=== PATIENT | male | born 1980 | race Caucasian/White ===

== ENCOUNTER 2017-04-09 12:57 | Emergency (ER) | payer OTHER | END 2017-04-09 15:15 | disposition home or self-care (01) | LOC: D.ER 12:57 | DX: S69.91XA Unspecified injury of right wrist, hand and finger(s), initial encounter (principal); W19.XXXA Unspecified fall, initial encounter ==

== ENCOUNTER 2017-04-18 20:38 | Emergency (ER) | payer OTHER | END 2017-04-19 00:40 | disposition home or self-care (01) | LOC: D.ER 20:38 | DX: S69.91XA Unspecified injury of right wrist, hand and finger(s), initial encounter (principal); V43.62XA Car passenger injured in collision with other type car in traffic accident, initial encounter; Y93.89 Activity, other specified; Y92.410 Unspecified street and highway as the place of occurrence of the external cause ==

== ENCOUNTER → 2017-11-30 15:04 | Outpatient (CLI) | payer SELFPAY | END | disposition home or self-care (01) | LOC: D.RAD 15:04 | DX: M25.531 Pain in right wrist (principal) ==

== ENCOUNTER 2017-11-30 15:41 | Emergency (ER) | payer SELFPAY | END 2017-11-30 17:45 | disposition home or self-care (01) | LOC: D.ER 15:41 | DX: Z98.890 Other specified postprocedural states (principal); T84.84XA Pain due to internal orthopedic prosthetic devices, implants and grafts, initial encounter ==

== ENCOUNTER 2018-12-25 17:48 | Emergency (ER) | payer SELFPAY ==
[~2018-12-25] VITALS: Ht 182.9 cm; Wt 88.2 kg
[2018-12-25 17:55] VITALS: Ht 182.9 cm; Wt 88.2 kg
[2018-12-25] MEDS ORDERED: HYDROCODON-ACE1 EA10 PO (21:32)
[2018-12-25 21:46] VITALS: BP 132/88
== END 2018-12-25 21:55 | disposition home or self-care (01) ==
LOC: D.ER 17:48
DX: S61.215A Laceration without foreign body of left ring finger without damage to nail, initial encounter (principal); W18.30XA Fall on same level, unspecified, initial encounter; Y93.89 Activity, other specified; Y92.019 Unspecified place in single-family (private) house as the place of occurrence of the external cause